=== PATIENT | female | born 1945 | race Caucasian/White ===

== ENCOUNTER 2017-08-14 21:37 | Day surgery (SDC) | payer OTHER ==
[~2017-08-14] VITALS: Ht 162.6 cm; Wt 69.8 kg
[~2017-08-14 21:37] MED LIST: DAILY VITE1 EAC1 PO; PROBIOTIC1 EAC2 PO; VITAMIN D31000 UNI2 PO
[2017-08-14 22:17] LABS: HEMATOCRIT 39.7 % (36.0-46.0); HEMOGLOBIN 13.8 G/DL (11.9-15.5); MCH 32.9 PG (29.0-34.0); MCHC 34.8 G/DL (30.0-36.0); MCV 94.7 FL (83-99); PLATELET COUNT 167 K/uL (156-360); RBC DIS.WIDTH-CV 14.2 % (11.8-14.6); RBC DIS.WIDTH-SD 49.1 % (39-53); RED BLOOD COUNT 4.19 M/uL (3.80-5.20); WHITE BLOOD COUNT 8.6 K/uL (4.1-10.2)
[2017-08-14 22:27] LABS: ALBUMIN 4.1 g/dL (3.2-4.8); CHLORIDE 106 mEq/L (99-109); POTASSIUM 3.7 mEq/L (3.7-5.4); SODIUM 140 mEq/L (136-147)
[2017-08-14 22:29] LABS: GLUCOSE 108 mg/dL (70-99); TOTAL PROTEIN 6.7 g/dL (6.4-8.3)
[2017-08-14 22:31] LABS: TOTAL BILIRUBIN 0.4 mg/dL (0.0-1.0)
[2017-08-14 22:33] LABS: ALKALINE PHOSPHATASE 90 IU/L (3-129); CREATININE 0.8 mg/dL (0.6-1.3); GFR ESTIMATE (CALCULATED) > 59 mL/min/
[2017-08-14 22:34] LABS: UREA NITROGEN (BUN) 22 mg/dL (9-23)
[2017-08-14 22:35] LABS: AST (GOT) 18 IU/L (2-34)
[2017-08-14 22:36] LABS: ALT (GPT) 14 IU/L (3-49)
[2017-08-14 22:46] LABS: APPEARANCE CLEAR ((CLEAR)); BILIRUBIN NEGATIVE; BLOOD SMALL; COLOR YELLOW ((YELLOW)); GLUCOSE (STRIP) NEGATIVE; KETONES 5; LEUKOCYTES NEGATIVE; NITRITE NEGATIVE; PROTEIN (STRIP) NEGATIVE; SPECIFIC GRAVITY 1.014 (1.000-1.030); UROBILINOGEN 0.2 MG/DL (0.2-1.0)
[2017-08-14 22:48] LABS: BACTERIA NONE SEEN /HPF; EPITHELIAL CELLS RARE /HPF; MUCUS NONE SEEN /LPF; RED BLOOD CELLS 0-5 /HPF (0-5); UCUL ADDED? NO; WHITE BLOOD CELLS 0-5 /HPF (0-5)
[2017-08-15] MEDS ORDERED: AMOXICILLIN500 MG PO (01:08)
[2017-08-15] MEDS ORDERED: ESTRACE42.5 GM VG (01:10)
[2017-08-15] MEDS ORDERED: RESTASIS MULTI5.5 ML BOTH EYES (01:11)
[2017-08-15] MEDS ORDERED: MAG-OXIDE200 MG PO (01:12)
[2017-08-15 04:28] VITALS: BP 109/59
[2017-08-15 07:40] VITALS: BP 95/55
[2017-08-15 12:00] VITALS: BP 100/56
[2017-08-15 16:00] VITALS: BP 90/51
[2017-08-15] MEDS ORDERED: MOTRIN600 MG PO (18:58)
[2017-08-15] MEDS ORDERED: HYDROCODON-ACE1 EAC7 PO (18:58)
[2017-08-15] MEDS ORDERED: DOCUSATE SODIU100 MG PO (19:00)
== END 2017-08-15 19:46 | disposition home or self-care (01) ==
LOC: EXP 21:37 → EME 21:37 → EXP 08-15 01:51 → SDC 08-15 01:51 → 2SOUTH 08-15 03:07 → ENRESERV 08-15 03:08 → 2EAST 08-15 04:21
PROC: 0DTJ0ZZ Resection of Appendix, Open Approach (ICD-10-PCS; principal; 2017-08-15)
DX: K35.80 Unspecified acute appendicitis (principal); Z90.79 Acquired absence of other genital organ(s); Z90.721 Acquired absence of ovaries, unilateral; Z82.49 Family history of ischemic heart disease and other diseases of the circulatory system; Z80.9 Family history of malignant neoplasm, unspecified
CPT/HCPCS: 74177; 80053; 81003; 85027; 88304; 93005; 99281; 99285; G0378; J0131; J2175; J2250; J2405; J2543; J3010; J7030; J7120